=== PATIENT | male | born 1955 | race Caucasian/White ===

== ENCOUNTER 2016-09-24 11:33 | Emergency (ER) | payer MEDICAID, OTHER ==
[~2016-09-24] VITALS: Ht 182.9 cm; Wt 90.9 kg
[~2016-09-24 11:33] MED LIST: ASPIRIN 81M81 MG/TA2 PO; FOLIC ACID 11 MG/TA1 PO; MOBIC15 MG PO; MORPHINE 1515 MG/TAB PO; NAPROSYN500 MG PO; NATURAL IRON65 MG PO; NEURONTIN300 MG/CAP PO; NORCO 325 MG-51 TAB PO; PERCOCET 325 MG1 TA3 PO; PRADAXA 150MG150 MG PO; PRIL40 PO; PROAIR HFA0.09 MG/AC IH; REVIA 50MG TABL50 MG PO; RT ADVAIR 528 DISKUS IH; RT SPIRIVA18 MCG IH; THERAGRAN TAB1 UDTAB PO; THIAMINE 1100 MG/TAB PO; TOPROL XL100 MG PO; VALIUM 5MG T5 MG/TAB PO; WELLBUTRIN 100100 MG PO; WELLBUTRIN SR150 M1 PO; XANAX 0.5MG0.5 MG PO; ZANTAC 150MG T150 MG PO; ZOCOR 40MG40 MG PO; ZOFRAN 4MG T4 MG/TAB PO; ZOLOFT 50MG50 MG PO
[2016-09-24 11:36] VITALS: BP 121/91; TEMP 97.5
[2016-09-24 12:24] LABS: BASO # 0.1 (0.0-0.2); BASO % 0.8 % (0.0-2.0); EOS # 0.3 (0.0-0.7); GRAN # 3.3 (1.4-6.5); GRAN % 53.2 % (42.2-75.2); HEMATOCRIT 40.7 % (42.0-52.0); HEMOGLOBIN 13.1 g/dl (13.5-18.0); LYMPH # 1.8 (1.2-3.4); LYMPH % 29.3 % (20.0-51.0); MEAN CELL VOLUME 89 fl (80.0-100.0); MEAN CORPUSCULAR HEMOGLOBIN 29 pg (27.0-31.0); MEAN CORPUSCULAR HGB CONC 32 g/dl (33.0-37.0); MEAN PLATELET VOLUME 10.7 fl (7.4-10.4); MONO # 0.8 (0.1-0.6); MONO % 12.4 % (1.7-9.3); PLATELET COUNT 200 K/mm3 (130-400); RED BLOOD COUNT 4.59 M/mm3 (4.20-5.60); REDCELL DISTRIBUTION WIDTH-CV 13.4 % (11.5-14.5); WHITE BLOOD COUNT 6.2 K/mm3 (4.8-10.8)
[2016-09-24 12:32] LABS: ADJUSTED CALCIUM 9.5 mg/dL (8.4-10.2); ALBUMIN 4.2 gm/dL (3.5-5.0); BILIRUBIN,TOTAL 0.6 mg/dL (0.0-1.0); CALCIUM 9.7 mg/dL (8.4-10.2); CREATININE, serum 0.83 mg/dL (0.66-1.25); POTASSIUM 4.6 mmol/L (3.4-5.0); TOTAL PROTEIN 7.2 gm/dL (6.4-8.2)
[2016-09-24 13:38] LABS: B-TYPE NATRIURETIC PEPTIDE 243 pg/mL (0-125)
[2016-09-24 13:39] LABS: TROPONIN-I < 0.012 ng/mL (0.000-0.034)
[2016-09-24 14:45] VITALS: PULSE 67
== END 2016-09-24 14:47 | disposition home or self-care (01) ==
LOC: COL.ER 11:33
PROVIDERS: Family Medicine
DX: R07.89 Other chest pain (principal); I51.7 Cardiomegaly; I45.10 Unspecified right bundle-branch block
CPT/HCPCS: J1885; J2930